=== PATIENT | male | born 1990 ===

== ENCOUNTER 2019-01-16 22:47 | Emergency (ER) | payer BC ==
[~2019-01-16] VITALS: Wt 65.9 kg
--- NOTE | 2019-01-17 01:38 | ERD ---
ER Documentation Chief Complaint Chief Complaint L GREAT TOE PAIN S/P DROPPING WEIGHTS ON FOOT HPI 28-year-old male with no significant past medical history presenting to the emergency department complaining of pain to the right great toenail after dropping a heavy weight on it just prior to arrival. Pain is moderate to severe. He took no medication for relief of symptoms prior to arrival. He denies any head injury, loss of consciousness, or other symptoms or injuries at this time. ROS All systems reviewed and are negative except as per history of present illness. Medications Home Meds Active Scripts Hydrocodone/Acetaminophen ([place] 5-325 Tablet) 1 Each Tablet, 1 TAB PO Q6H PRN for SEVERE PAIN LEVEL 7-10, #7 TAB Prov:GUCCI LY F 01/17/19 Cephalexin* (Keflex*) 500 Mg Capsule, 500 MG PO QID for 5 Days, CAP Prov:CURTISILABANABEBEAR F 01/17/19 Ibuprofen* (Motrin*) 600 Mg Tab, 600 MG PO Q6, #30 TAB Prov:ANTONINA MARES PA-C 01/17/19 Allergies Allergies: Coded Allergies: No Known Allergy (Unverified , 01/16/19) PMhx/Soc Medical and Surgical Hx: pt denies Medical Hx, pt denies Surgical Hx Hx Alcohol Use: No Hx Substance Use: No Hx Tobacco Use: No Smoking Status: Never smoker FmHx Family History: No diabetes Physical Exam Vitals Vital Signs Date Temp Pulse Resp B/P (MAP) Pulse Ox O2 O2 Flow FiO2 Time Delivery Rate 01/17/19 98.0 67 18 120/58 99 Room Air 04:19 (78) 01/16/19 97.9 70 18 112/66 98 22:57 (81) Physical Exam Const: No acute distress Head: Atraumatic Eyes: Normal Conjunctiva ENT: Normal External Ears, Nose and Mouth. Neck: Full range of motion. No meningismus. Resp: No respiratory distress. Skin: No petechiae or rashes Ext: Active subungual hematoma noted to the right great toe. There is no tenderness to palpation of the right foot. No open fracture noted. Neur: Awake and alert Psych: Normal Mood and Affect Results 24 hrs Current Medications Medications Dose Sig/Victoriano Start Time Status Last (Trade) Ordered Route PRN Stop Time Admin Dose Reason Admin Diphtheria/ 0.5 ml ONCE ONCE 01/17/19 DC 01/17/19 Tetanus/Acell IM* 03:30 03:35 Pertussis 01/17/19 03:31 (Adacel) Lidocaine 20 ml ONCE ONCE 01/17/19 DC (Xylocaine SC 03:30 1% (Mdv) 20 01/17/19 03:31 ml) 1 tab ONCE ONCE 01/17/19 DC Acetaminophen PO 03:30 / 01/17/19 03:31 Hydrocodone Bitart ([place] (10)) Ibuprofen 800 mg ONCE ONCE 01/17/19 DC 01/17/19 (Motrin) PO 03:30 03:35 01/17/19 03:32 Bacitracin 1 applic ONCE ONCE 01/17/19 DC 01/17/19 (Bacitracin TOP 04:00 03:55 Oint (Ud)) 01/17/19 04:01 [place] [id number] Radiology Main Line: [phone] DIAGNOSTIC IMAGING REPORT Patient: YOGI HERNANDEZ : 1990 Age: 28 Sex: M MR #: [id number] DOS: 01/17/19 0000 Ordering MD: ANTONINA MARES PA-C Location: [facility] Room/Bed: PROCEDURE: XR right first toe CLINICAL INDICATION: R great toe injury , pain TECHNIQUE: AP, oblique and lateral views of the right first toe were performed. COMPARISON: No prior studies are available for comparison. FINDINGS: There is a comminuted intra-articular fracture involving the proximal, mid and distal aspect of the distal phalanx of the right first toe with the surrounding soft tissue swelling and bandage. No dislocation is seen. IMPRESSION: There is a comminuted intra-articular fracture involving the proximal, mid and distal aspect of the distal phalanx of the right first toe with the surrounding soft tissue swelling and bandage. RPTAT: HJES .Yogi Cleveland MD, MD Date Time Electronically viewed and signed by .Yogi Cleveland MD, on 01/17/2019 02:50 .S/ CC: ANTONINA MARES PA-C [phone] Procedures/MDM 28-year-old male presenting to the emergency department complaining of right great toenail injury. The patient's toe was wrapped with pressure applied to the area. This patient was signed out to my colleague, Gucci Luther NP, pending results of x-ray of the right great toe. Please refer to his following medical decision making for further information. X-ray of the right great toe: There is a comminuted intra-articular fracture involving the proximal, mild and distal aspect of the distal phalanx of the right first toe with surrounding soft tissue swelling and bandage. This case was discussed with my supervising physician, Dr. Yung Sultana who agreed for me to drain. Treatment: Adacel IM. [place] was ordered but patient refused stated that he will try. Motrin was ordered. Procedure: Trephination of subungual hematoma to right great toe. Betadine prep. Lidocaine 1% 2 cc digital block. Trephination (drained using cautery pen). Drained minimal blood. Bacitracin and dressing was applied by EMT. Reevaluation: Patient tolerated the procedure well. No neurovascular deficit. No neurological deficit. Ortho shoe was applied by EMT. Crutches and crutch training was provided. Follow-up with PCP in the next 24 to 48 hours. PCP to refer patient to medical communication specialist and/or nutrition internship in the next 3 to 4 days. Come back here to the emergency department for any new symptoms or any worsening symptoms. All questions and concerns were answered. Patient verbalized understanding and agreed with plan of care. Hemodynamically stable on discharge. Departure Diagnosis: Primary Impression: Fracture of right great toe Condition: ANTONINA Wan PA-C January 17, 2019 01:38 GUCCI LY January 17, 2019 03:15
[2019-01-17] MEDS ORDERED: IBUP-1542 PO (01:55)
[2019-01-17] MEDS ORDERED: CEPH-443 PO (03:12)
[2019-01-17] MEDS ORDERED: HYDR-4011 PO (03:14)
[2019-01-17] MEDS ORDERED: DIPHTH/TET/ACEL PERTUSS (ADULT) 0.5 ML VIAL IM* ONE (03:30)
[2019-01-17] MEDS ORDERED: IBUPROFEN 800 MG TAB PO ONE (03:30)
[2019-01-17] MEDS ORDERED: HYDROCODONE/APAP (10/325) TAB PO ONE (03:30)
[2019-01-17] MEDS ORDERED: LIDOCAINE 1% (MDV) 20 ML INJ SC ONE (03:30)
[2019-01-17] MEDS ORDERED: BACITRACIN 0.9 GM OINT TOP ONE (04:00)
[2019-01-17 04:19] VITALS: BP 120/58; PULSE 67; RESP 18
== END 2019-01-17 04:40 | disposition home or self-care (01) ==
LOC: FTE 22:47
DX: S92.421A Displaced fracture of distal phalanx of right great toe, initial encounter for closed fracture (principal); W20.8XXA Other cause of strike by thrown, projected or falling object, initial encounter; Y92.9 Unspecified place or not applicable; Z23 Encounter for immunization
CPT/HCPCS: 73660; 90471; 90715